=== PATIENT | female | born 1965 | race Caucasian/White ===

== ENCOUNTER 2019-05-10 17:14 | Emergency (ER) | payer BC ==
[~2019-05-10] VITALS: Ht 167.6 cm; Wt 81.7 kg
[~2019-05-10 17:14] MED LIST: ALEVE220 MG PO; ASPIRIN325 PO; CIPRO500 MG PO; COLACE100 MG PO; DUONEB 2.5-0.5 M3 ML INH; IBUPROFEN 200200 M1 PO; OXYCODONE HCL 55 MG PO; PERCOCET 5-3251 EACH PO; PERCOCET PO; TRAMADOL 50 MG50 MG PO; VENTOLIN HFA 1818 GM INH; VICODIN 5-3001 EACH PO; XARELTO10 MG PO
[2019-05-10] MEDS ORDERED: XANAX 0.5 MG0.5 MG PO (17:26)
[2019-05-10] MEDS ORDERED: BACTRIM DS TAB1 EACH PO (17:38)
[2019-05-10] MEDS ORDERED: KEFLEX500 M1 PO (17:38)
[2019-05-10 17:48] VITALS: BP 185/99
== END 2019-05-10 17:50 | disposition home or self-care (01) ==
LOC: M.ERS 17:14
DX: L03.211 Cellulitis of face (principal); R59.1 Generalized enlarged lymph nodes; F17.210 Nicotine dependence, cigarettes, uncomplicated; Z90.49 Acquired absence of other specified parts of digestive tract; Z90.710 Acquired absence of both cervix and uterus; Z88.8 Allergy status to other drugs, medicaments and biological substances

== ENCOUNTER 2019-05-11 15:20 | Inpatient (IN) | payer BC ==
[~2019-05-11] VITALS: Ht 167.6 cm; Wt 81.6 kg
[~2019-05-11 15:20] MED LIST changes: +BACTRIM DS TAB1 EACH PO; +KEFLEX500 M1 PO; +XANAX 0.5 MG0.5 MG PO
[2019-05-11 15:42] VITALS: BP 151/98
[2019-05-11 16:52] LABS: ABSOLUTE BASOPHILS 0.1 thou/uL (0.0-0.2); ABSOLUTE EOSINOPHILS 0.1 thou/uL (0.0-0.7); ABSOLUTE LYMPHOCYTES 1.5 thou/uL (0.8-5.3); ABSOLUTE MONOCYTES 0.8 thou/uL (0.0-1.2); ABSOLUTE NEUTROPHILS 6.3 thou/uL (1.6-8.1); BASOPHILS 1.1 %; EOSINOPHILS 1.4 %; HEMOGLOBIN 14.7 gm/dL (12.0-15.0); MCHC 34.2 g/dL (28.0-37.0); MCV 93.6 fL (80.0-100.0); MONOCYTES 8.5 %; MPV 8.5 fl. (7.2-11.1); NUCLEATED RBCS 0 /100WBC; PLATELET COUNT* 231 thou/uL (150-400); RBC 4.59 mil/uL (4.20-5.00); RDW-CV 13.3 % (10.5-14.5); WBC 8.8 thou/uL (4.0-11.0)
[2019-05-11 17:03] LABS: CALCIUM 9.1 mg/dL (8.5-10.1); CREATININE 0.7 mg/dL (0.6-1.3)
[2019-05-11 17:08] LABS: ALBUMIN 3.5 g/dL (3.4-5.0); TOTAL BILIRUBIN 0.4 mg/dL (<0.1-1.0); TOTAL PROTEIN 7.6 g/dL (6.4-8.2)
[2019-05-11 21:17] VITALS: BP 148/67
[2019-05-11 21:30] VITALS: BP 121/70
[2019-05-12 03:51] LABS: HEMATOCRIT 40.7 % (37.0-47.0); HEMOGLOBIN 13.7 gm/dL (12.0-15.0); MCH 32.1 pg (26.0-34.0); MCHC 33.7 g/dL (28.0-37.0); MCV 95.1 fL (80.0-100.0); MPV 9.5 fl. (7.2-11.1); NUCLEATED RBCS 0 /100WBC; PLATELET COUNT* 241 thou/uL (150-400); RBC 4.28 mil/uL (4.20-5.00); RDW-CV 12.8 % (10.5-14.5); WBC 7.7 thou/uL (4.0-11.0)
[2019-05-12 03:55] LABS: CALCIUM 9.2 mg/dL (8.5-10.1); CREATININE 0.8 mg/dL (0.6-1.3); POTASSIUM 4.5 mmol/L (3.5-5.1)
[2019-05-12 05:54] LABS: ABSOLUTE MONOCYTES 0.1 thou/uL (0.0-1.2); ABSOLUTE NEUTROPHILS 6.6 thou/uL (1.6-8.1); PLATELET ESTIMATE ADEQUATE
[2019-05-12 05:55] LABS: ANISOCYTOSIS 1+; LARGE PLATELETS RARE; POIKILOCYTOSIS 1+
[2019-05-12 07:50] VITALS: BP 142/76
[2019-05-12 16:29] VITALS: BP 134/66
[2019-05-12 20:00] VITALS: BP 110/55
[2019-05-13 08:20] VITALS: BP 147/79
[2019-05-13] MEDS ORDERED: MINOCIN50 MG PO (12:08)
[2019-05-13] MEDS ORDERED: TRAMADOL 50 MG50 MG PO (12:09)
[2019-05-13] MEDS ORDERED: CEFDINIR300 MG PO (12:09)
[2019-05-13 12:39] VITALS: BP 147/79
== END 2019-05-13 13:04 | disposition home or self-care (01) | DRG 156 ==
LOC: M.ERS 15:20 → M.ORTHSURG 18:06 → M.TBA-ER 18:06 → M.ORTHSURG 21:42
PROVIDERS: Physician Assistant; ADMIT Family Medicine
DX: J34.0 Abscess, furuncle and carbuncle of nose (principal); F17.210 Nicotine dependence, cigarettes, uncomplicated; R13.10 Dysphagia, unspecified; Z79.899 Other long term (current) drug therapy; Z88.8 Allergy status to other drugs, medicaments and biological substances; Z90.710 Acquired absence of both cervix and uterus; Z90.49 Acquired absence of other specified parts of digestive tract